=== PATIENT | female | born 1980 | race Two or more races ===

== ENCOUNTER 2023-08-10 09:49 | Outpatient (CLI) | payer BC, SELFPAY ==
--- OUTSIDE RECORDS SUMMARY | 2023-08-07 14:28 | XMS_ITS | Patient Health Record ---
Author Name Unknown Organization [facility] S Address [address] [id number] Care Team Providers Care Museum Exhibit Technician Name Role Phone Jarett IRWIN, Paulo Primary Care Provider [phone] REASON FOR REFERRAL No Information MEDICATIONS Medication SIG (Take, Route, Frequency, Duration) Notes Start Date End Date Status Cyclobenzaprine HCl 10 MG 1 tab(s) orall y at bedtime as needed for back pain/spasm 08/19/2010 Active Ibuprofen 800 MG 1 tab(s) orally 3 ti mes a day for two weeks, then three times a day as needed for pain 08/19/2010 Active IMMUNIZATIONS Vaccine Route Administration Date Status Comme nts Influenza 6 months and older Preservative Free IM Intramuscular 06/19/2020 Administered Influenza 6 months and older Preservative Free IM Intramuscular 07/01/2021 Administered SOCIAL HISTORY Sex Assigned At : Social History Observation Description Sex Assigned At Unknown PLAN OF TREATMENT No Information Insurance Providers Payer Name Payer Address Payer Phone Subscriber Number Group Number Insured Name Patient Relationship to Insured Coverage Start Date Coverage End Date [facility] [address] [address] [place] [address] [id number] Kirby Edwards Child - Insured has Financial Responsibility 7 MEDICAL (GENERAL) HISTORY Surgical History Surgery Date(Month/Year) thyroidglossal cyst remove 1984
--- OUTSIDE RECORDS SUMMARY | 2023-08-10 09:53 | XMS_ITS | Patient Health Record ---
Author Name Unknown Organization [facility] S Address [address] [id number] Care Team Providers Care Engine Room Helper Name Role Phone Jarett IRWIN, Paulo Primary Care Provider REASON FOR REFERRAL No Information MEDICATIONS Medication [...] Insured Coverage Start Date Coverage End Date [facility] [address] [address] [place] [address] [id number] Kirby Edwards Child - Insured has Financial Responsibility 7 MEDICAL (GENERAL) HISTORY Surgical History Surgery Date(Month/Year) thyroidglossal cyst remove 1984
== END 2023-08-10 09:50 | disposition home or self-care (01) ==
LOC: INJ CL 09:50
PROVIDERS: PCP Family Medicine; Visit Provider Family Medicine
DX: M51.36 Other intervertebral disc degeneration, lumbar region (principal); M54.16 Radiculopathy, lumbar region
CPT/HCPCS: 62323; J0702; Q9966

== ENCOUNTER 2023-10-06 20:50 | Emergency (ER) | payer OTHER, BC, SELFPAY ==
[2023-10-06 21:11] VITALS: BP 139/83; PULSE 73; RESP 16; TEMP 37.7; O2SAT 97; BMI 21.4
[2023-10-06 22:28] LABS: PCR FLU A Negative PCR FLU A (Negative); PCR FLU B Negative PCR FLU B (Negative); PCR RSV Negative PCR RSV (Negative); SARS PCR* Negative SARS-CoV-2 (Negative)
--- OUTSIDE RECORDS SUMMARY | 2023-10-06 23:04 | XMS_ITS | Clinical Summary ---
Author Name Unknown Organization [facility] Address [place], [place] [address] Care Team Providers Care Catalogue Clerk Name Role Phone Yu Ferguson JEFFREY Primary Care Provider [phone] Allergies No known active allergies Medications Medication Sig Dispensed Refills Start Date End Date Status vitamin-folic acid 1 mg ( VITAMIN) tablet/capsuleIndic ations:, unspecified gestational age Take 1 tablet by mouth once daily. 0 10/24/2015 Active medication order composerIndications :Lumbar radicular pain Tumeric 0 11/05/2017 Active glucosamine-chondro itin, 500-400 mg, (COSAMIN DS 500/400) 500-400 mg capIndications:Lumb ar radicular pain Take 2 capsules by mouth once daily. 60 capsule 11 12/20/2017 Active cyclobenzaprine (FLEXERIL) 10 mg tabletIndications:D DD (degenerative disc disease), lumbar Take 0.5-1 Tablets (5-10 mg) by mouth at bedtime if needed for Muscle Spasm. This may make you drowsy. 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 Jang. DDD (degenerative disc disease), lumbar at L5-S1 10/15/2017 Lumbar radicular pain 10/15/2017 10/25/2015 Overview: first EDC by first trimester US AMA: declines testing. Level US schedule with [facility] at 20 weeks Planning to transfer care third trimester to deliver with automated logistics specialist in [place]. Pelvic pain during 10/25/2015 Fibroid 05/09/2014 Overview: 04/2014: 5mm, submucosal Resolved Problems Problem Noted Date Diagnosed Date Resolved Date Heavy periods 04/20/2014 10/25/2015 BV (bacterial vaginosis) 04/20/2014 Encounters Date Type Department Care Team Description 08/10/2023 10:20 AM PROFESSOR IN FAMILY STUDIES Office Visit [facility] [address] [place] [address] Jonny Jang MD Procedure (L4-5 ILESI) 08/10/2023 Travel 07/27/2023 10:45 AM PROFESSOR IN FAMILY STUDIES Office Visit [facility] [address] [place] [address] Abdiel Washingotn MD Musculoskeletal Problem (Follow up DDD Lumbar Spine/Pain happened over time ) 07/27/2023 Travel from Last 3 Months Immunizations Name Administration Dates Next Due Tdap 04/19/2014 Family History Medical History Relation Name Comments Good Health Brother Diabetes Father Hypertension Father Cancer Maternal Grandfather d from [place] Diabetes Maternal Grandmother Cancer Mother non hodgkins Diabetes Paternal Grandfather Hypertension Paternal Grandfather Good Health Paternal Grandmother Good Health Sister Relation Name Status Comments Brother Father Maternal Grandfather Maternal Grandmother Mother Paternal Grandfather Paternal Grandmother Sister Social History Tobacco Use Types Packs/Day Years Used Date Smoking Tobacco: Never Smokeless Tobacco: Never Tobacco Cessation:Counseling Given: Yes Alcohol Use Standard Drinks/Week Comments Yes 0 (1 standard drink = 0.6 oz pur e alcohol) social Social Connections Answer Date Recorded Frequency of Communication with Friends and Fami ly Not on file 2021 Financial Resource Strain Answer Date R ecorded Difficulty of Paying Living Expenses Not on file 2021 Difficulty of Paying Living Expenses Not on file 2021 Sex and Gender Information Value Date Recorded Sex Assigned at Not on file Gender Identity Not on file Sexual Orientation Not on file Obstetrics History Para Term AB IAB SAB Ectopic Multiple Livin g Live Births 2 1 1 Date Outcome GA Total Labor Labor/2nd/3rd Weight Sex Delivery Anes PTL Cande A1 A5 Name Cl in IAB Last Filed Vital Signs Vital Sign Reading Time Taken Comments Blood Pressure 110/64 07/27/2023 10:54 AM PROFESSOR IN FAMILY STUDIES christi nuel Pulse 85 07/27/2023 10:54 AM PROFESSOR IN FAMILY STUDIES Temperature 36.9 ??C (98.4 ??F) 12/04/2020 1:06 PM CD T Respiratory Rate 16 03/03/2016 3:31 PM CDT Oxygen Saturation 99% 07/27/2023 10:54 AM PROFESSOR IN FAMILY STUDIES Inhaled Oxygen Concentration - - Weight 68.7 kg (151 lb 6.4 oz) 07/27/2023 10:54 AM PROFESSOR IN FAMILY STUDIES Height 171.8 cm (5' 7.64) 11/05/2017 10:[address] Body Mass Index 23.27 11/05/2017 10:21 AM PROFESSOR IN FAMILY STUDIES Plan of Treatment Health Maintenance Due Date Last Done Comments Depression screening for age 12+ 11/25/2016 11/26/2015 BMI (ht and wt on same day) for age 18+ 11/05/2018 11/05/2017, 10/15/2017, 11/26/2015, Additional history exists Pap test for age 21-65 08/05/2019 6, 08/05/2016, 04/19/2014 COVID-19 vaccine series (2022- season) 2023 07/16/2022, 07/30/2021, 01/04/2021, Additional history exists Influenza for age 9-49 04/30/2023 Colonoscopy through age 75 2023 Lipids for age 45-75 2023 04/19/2014 Mammogram for age 45-75 2023 Tetanus booster 04/19/2024 04/19/2014 Tdap Completed 04/19/2014 HIV for age 15-65 Completed 11/26/2015 Hepatitis C screening for age 18-79 Completed 03/24/2016 Pneumococcal series for age 6-64 Aged Out No longer eligible based on patient's age to complete this topic Procedures Procedure Name Priority Date/Time Associated Diagnosis Comments RI NJX DX/THER SBST INTRLMNR LMBR/SAC W/IMG GDN Routine 08/10/2023 12:00 AM PROFESSOR IN FAMILY STUDIES DDD (degenerative disc disease), lumbar Lumbar radiculopathy AMB EPIDURAL STEROID INJECTION Routine 08/10/2023 12:00 AM PROFESSOR IN FAMILY STUDIES DDD (degenerative disc disease), lumbar from Last 3 Months Results * RI NJX DX/THER SBST INTRLMNR LMBR/SAC W/IMG GDN (08/10/2023 12:00 AM PROFESSOR IN FAMILY STUDIES) Jonny Jang MD PB - NERVOUS SYSTE M SERVICES * AMB EPIDURAL STEROID INJECTION (08/10/2023 12:00 AM PROFESSOR IN FAMILY STUDIES) Abdiel Washington MD NEUROLOGY ORD from Last 3 Months Care Teams Catalogue Clerk Relationship Specialty Start Date End Date Yu Ferguson CNM [address] [place] [address] PCP - General 03/24/16"
--- OUTSIDE RECORDS SUMMARY | 2023-10-06 23:05 | XMS_ITS | Patient Health Record ---
Author Name Unknown Organization [facility] S Address [address] [id number] Care Team Providers Care Prevocational/Rehabilitation Counselor Name Role Phone Jarett IRWIN, Paulo Primary Care Provider [phone] REASON FOR REFERRAL No Information MEDICATIONS Medication [...] Insured Coverage Start Date Coverage End Date [facility] [address] [address] [place] [address] [id number] Kirby Edwards Child - Insured has Financial Responsibility 7 MEDICAL (GENERAL) HISTORY Surgical History Surgery Date(Month/Year) thyroidglossal cyst remove 1984
--- OUTSIDE RECORDS SUMMARY | 2023-10-06 23:05 | XMS_ITS | Data Portability ---
Author Name Unknown Address [address] [place] [address] Phone [phone] Organization [facility], [facility] Address [address] [place] [address] Assessment Encounter Date Assessment Date Assessment LastModified by Organization Details LastModified Time 10/03/2019 10/03/2019 risk assessment is: normal and low-risk Not available 10/03/2019 15:31:41 Plan of Treatment Reminders Order Date Submit Date Provider Last Modified By Organization Details Last Modified Time Details Appointments None record ed. Lab None record ed. Referral None record ed. Procedures None record ed. Surgeries None record ed. Imaging None record ed. Medication Orders None record ed. Patient TargetsNo targets recorded. Patient Instructions Encounter Date Encounter Id Patient Instructions Last Modified By Organization Details Last Modified Time 10/03/2019 [id number] We discussed t and supplements and modifiable risk factors. {{Kanchan# name}} advised to continue moderate physical activity. She will report unusual headaches, visual disturbances, pelvic pain or cramping, vaginal bleeding, rupture of membranes, extreme swelling in hands or face, diminished urine volume, any prolonged illness or infection, or persistent symptoms of labor. She has been provided with a handout explaining the different ways to contact a provider including the office number, the portal address for messages, and the on-call number. A tour and orientation session was attended {{for this with previous *}}. We collected an informed consent agreement and provided the web address and password for our client information that includes a client handbook with informational documents we use for our informed consent process. [facility] schedule for routine care discussed. Our routine visits occur 1x in the first trimester, 20 weeks, 26 weeks, 30 weeks, 34 weeks, 36 weeks for a long appointment, 38 weeks, and 40 weeks. More visits can be scheduled as needed through the portal or by calling. Labs/ultrasounds have been {{ordered request ed from previous provider*}}. Genetic testing was discussed and additional information is available in the client handbook. Her plan is to {{screen not screen undecided on screening*}}. At this time, she meets the risk criteria for care at [facility] and is anticipated to have a low-risk //p ostpartum time. Not available 10/03/2019 16:03:04 Reason for Referral None Reported. Results Created Date Observation Date Name Description Value Unit Range Abnormal Flag LastModifiedBy Organization Detail LastModifiedTime 10/13/19 20 10/12/2019 US, obste tric, 1st trime ster No observ ation record ed. [facility] [address] [place], [address], 12/19/2019 20:43:31 Result Notes None recorded. Problems Name Status Onset Date Resolution Date Notes Provider Name and Address Organization Details Recorded Time Completed 0 12/19/2019 Yu Ferguson, CPM, LM [address] [place], [address], [place] - [facility] 12/19/2019 20:45:10 Problem Notes None recorded. Procedures Surgical History None recorded. Imaging Results Imaging Date Name Status LastModified by Organiz ation Details LastModified Time 10/12/2019 US, obstetric, 1st trimester completed [facility] [address] [place], [address], 12/19/2019 20:43:31 Procedure Notes None recorded. Medical Equipment None Reported. Allergies No known drug allergies Medications Name Sig Start Date Stop Date Status Note LastModified by Organization Details LastModified Time hydroxyzine pamoate 25 mg capsule active Not Available Not Available Not Available Vitals Date Recorded Body height Body mass index (BMI) Body weight Respiratory rate Heart rate Systolic blood pressure Diastolic blood pressure Provider Name and Address Organization Details Last Updated DateTime 0 172.72 cm 9.1 kg/m2 15394.5 422 g 12 /min 80 /min 101 mm[Hg] 60 mm[Hg] ERASTO SCHRADER CPM, LM [address] [place], [address], [facility] 0 14:38:42 Social History Question Answer Notes LastModified by Organizat ion Details LastModified Time Tobacco Smoking Status Never Smoker ERASTO SCHRADER, CHRISTIAN, LM [address] [place], [address], [facility] 10/03/2019 14:55:04 What Is Your Level Of Alcohol Consumption? None Information not available 10/03/2019 If You Are , What Was Your Level Of Alcohol Consumption Prior To ? None Information not available 10/03/2019 What Is Your Level Of Caffeine Consumption? None Information not available 10/03/2019 Live With Cats/exposure To Cat Litter Yes Information not available 10/03/2019 Are You Currently Employed? Yes Information not available 10/03/2019 What Type Of Diet Are You Following? 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 1 Information not available 10/03/2019 Do You Or Have You Ever Used Smokeless Tobacco? [id number] Information not available 10/03/2019 How Much Tobacco Do You Smoke? No Information not available 10/03/2019 Smoking Pre- No Information not available 10/03/2019 Sex: Female Functional Status Question Answer Note LastModified by Organization D etails LastModified Time What is your exercise level? Moderate Information not available 10/03/2019 Mental Status None recorded. Family History Relationship Description Onset Age of this Age Resolved Age Notes Father No current problems or disability Mother No current problems or disability Medical History Condition Response Other N Blood Transfusion N Dermatologic Disorders N Gestational Diabetes N Anxiety Disorder N Autoimmune disease N Arthritis N Infertility N Polyps N Acid Reflux (GERD) N Cancer N Varicosities N Stroke N Neurologic/Epilepsy N Headaches N Fibromyalgia N Kidney Disease N Heart Problems N Kidney or Bladder Problems N Acne N Eating Disorder N Art (IVF or FET) N Hepatitis/Liver Disease N Trauma/Violence N Thrombophilias N Allergies (Food, seasonal, environmental ) N Drug/Latex Allergies/Reactions N Breast Cancer N Lung Disease N Defects or Inherited Disease N Breast Problem N Hematologic disorders N Anesthesia Complications N History of STI N Deep Vein Thrombosis N Polycystic ovary syndrome N History of abnormal pap N Endometriosis N High Cholesterol N Thyroid Problems N GI Problems N Anemia N Psychiatric Illness N Diabetes N Ovarian Cancer N Pulmonary (TB, Asthma) N Eczema N Abuse/Domestic Violence N Depression/ depression N Heart Disease N Pre-Eclampsia N Hypertension N Osteoporosis N Gynecological History Statement/Question Response Date of LMP 08/05/2019 Y On BCP's at Conception? N STIs/STDs N Duration of Flow (days) 30 N Age at Menarche 10 LMP Definite Obstetrics History GPAL:G 5 P 1 0 2 1 Type Value Multiple Births 0 Full Term 1 Induced 1 Spontaneous 1 Premature 0 Living 1 Ectopics 0 Total 5 Past Encounters Encounter ID Performer Location Encounter Start Date Encounter Closed Date Diagnosis/Indication [id number] ERASTO SCHRADER CPM, LM Main Office [address] [place] [address] 10/03/2019 14:30:52 10/03/2019 16:05:29 Health Concerns Section Related Observation LastModified by Organization Detai ls LastModified Time None Recorded Concern Status LastModified by Organization Details LastModified Time None Recorded Advance Directives Directive None Recorded Payers None recorded. Notes Date Note Type Note Provider Name and Address Organization Details Recorded Time 10/03/2019 text/html HPI Notes: Viviana griffith presents for initial OB visit and confirmation visit. Last menstrual period was 08/05/2019. Home test was positive. She is a G 4 P 1 Patient is transferring into our care for this from another provider. Her AMARILYS is 05/11/2020 based on LMP ERASTO SCHRADER CPM, LM [address] [place], [address], [facility] 10/03/2019 16:05:19 OBGyn Episode Ob Episode Information Episode Created Date Number of Fetuses Patient Bloodtype Patient rh Status Prepregnancy Weight lbs Domestic Partner Domestic Partner Phone Father Name Separator Inserter Status 10/03/19 20 1 163 Kirby CLOSED Fetus Data First Name Last Name Admitted to NICU Weight (g) Sex Living Outcome Pediatric Complications Fetus ID Race Codes Race Delivery Type [id number] Amarilys Calculation Initial Amarilys Date Initial Exam Date Initial Exam Provider Initial Ultrasound Date Last Menstrual Period Date Ultra Sound Weeks Gestation 05/11/2020 10/03/2019 10/12/2019 08/05/2019 9 Eighteen To Twenty Week Amarilys Update Ultra Sound Date Fundal Height At Umbil Quickening Date Ultra Sound Latest Weeks Gestation Final Amarilys Confirmed By Final Amarilys Confirmed Date Final Amarilys Date Ultra Sound Latest Days Gestation 0 05/11/20 20 0 Pre-lina Flowsheet Flowsheet Date 10/03/2019 Lim Score Blood Edema Fundus Height Fundus Units Glucose Ketones Leukocytes Nitrite Labor Signs Protein Cervic Dilation Cervic Effacement Cervic Station none 8 wks none Type Weight in lbs BP Diastolic BP Location Tested BP Systolic BP Type 60 101 Fetus Heart Rate Present Fetus Movement Comments Menstrual History Last Menstrual Date Menses Monthly On Bcp Conception Prior Menses Frequency Hcg Plus Date Menarche Onset Age 1208/05/2019 true false 30 12 Genetic Screening And Infection History Question Response Note Patient's Age Will Be 35 Years Or Older At Estim ated Date of Delivery true Thalassemia (Korean, Albanian, Mediterranean, Or Background): MCV < 80 false Neural Tube Defect (Meningomyelocele, Spina Bifi da, Or Anencephaly) false Congenital Heart Defect false Down Syndrome false Evan-Sachs (eg, Restoration, Cajun, Tunisian-Vermilion) f alse Rosa Disease false Sickle Cell Disease Or Trait () false Hemophilia Or Other Blood Disorders false Muscular Dystrophy false Cystic Fibrosis false Gila's Chorea false Intellectual Disability/Autism false If Yes, Was Person Tested For Fragile X? false Other Inherited Genetic Or Chromosomal Disorder false Maternal Metabolic Disorder (eg, Type 1 Diabetes , PKU) false Patient Or Baby's Father Had A Child With Defects Not Listed Above false Recurrent Loss, Or A Stillbirth false Medications (including Suppl ements, Vitamins, Herbs, OTC Drugs), Illicit/Recreational Drugs, Alcohol false If Yes, Agent(s) And Strength/Dosage false Any Other Genetic History false Live With Someone With TB Or Exposed To TB false Patient Or Partner Has History Of Genital Herpes false Rash Or Viral Illness Since Last Menstrual Perio d false History Of STD, Gonorrhea, Chlamydia, HPV, Syphi lis false Other Infection History false Prior GBS-infected child false History of HIV false History of Hepatitis false Hemoglobinopathy Or Carrier false Other Structural Defect false Recent Travel History Outside of Country false Mental Retardation/Autism false Delivery Information Delivery Date Delivery Type Labor Anesthesia Weeks Gestation Incision Type Labor Labor Length Hrs Delivered By Post Complications Tubal Sterilization Discharge Date Comments Discharge Information Feeding Method Contraceptive Method Maternal HG B and HCT Levels
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
== END 2023-10-06 23:06 | disposition home or self-care (01) ==
PROVIDERS: Emergency Provider Emergency Medicine; PCP Family Medicine
DX: M54.50 Low back pain, unspecified (principal); V43.52XA Car driver injured in collision with other type car in traffic accident, initial encounter
CPT/HCPCS: 87631; 99282; 99283

== ENCOUNTER 2023-10-27 12:21 | Outpatient (CLI) | payer OTHER, BC, SELFPAY | END 2023-10-27 12:22 | disposition home or self-care (01) | LOC: AMB 10-28 00:30 | PROVIDERS: PCP Family Medicine; Visit Provider Family Medicine | DX: S29.9XXA Unspecified injury of thorax, initial encounter (principal); V44.5XXA Car driver injured in collision with heavy transport vehicle or bus in traffic accident, initial encounter; Y92.410 Unspecified street and highway as the place of occurrence of the external cause | CPT/HCPCS: A0998 ==

== ENCOUNTER 2024-05-24 15:02 | Outpatient (CLI) | payer OTHER, SELFPAY ==
--- OUTSIDE RECORDS SUMMARY | 2024-05-24 15:07 | XMS_ITS | Clinical Summary ---
Author Organization [facility] Address [place], [place] [address] Care Team Providers Care Senior Report Developer Name Role Phone Yu Ferguson JEFFREY Primary Care Provider [phone] Allergies No known active allergies Medications Medication [...] Date Lumbar disc herniation at L4-5 10/15/2017 Overview (08/12/2023): ~ July 2023: L4-5 [place] epidural steroid injection by Dr. Jang. DDD (degenerative disc disease), lumbar at L5-S1 10/15/2017 Lumbar radicular pain 10/15/2017 10/25/2015 Overview (01/22/2016): first EDC by first trimester US AMA: declines testing. Level US schedule with MFM at 20 weeks Planning to transfer care third trimester to deliver with nuclear physician in [place]. Pelvic pain during 10/25/2015 Fibroid 05/09/2014 Overview (05/09/2014): 04/2014: 5mm, submucosal Resolved Problems Problem Noted Date Diagnosed Date Resolved Date Heavy periods 04/20/2014 10/25/2015 BV (bacterial vaginosis) 04/20/2014 Immunizations Name Administration Dates Next Due Tdap [...] Outcome GA Total Labor Labor/2nd/3rd Weight Sex Type Anes PTL Cande A1 A5 Name Clin IAB Last Filed Vital Signs Vital Sign Reading Time Taken Comments Blood Pressure 110/64 07/27/2023 10:54 AM SUPPLY CHAIN TECHNICIAN ma nuel Pulse 85 07/27/2023 10:54 AM SUPPLY CHAIN TECHNICIAN Temperature 36.9 ??C (98.4 ??F) 12/04/2020 1:06 PM CD T Respiratory Rate 16 03/03/2016 3:31 PM CDT Oxygen Saturation 99% 07/27/2023 10:54 AM SUPPLY CHAIN TECHNICIAN Inhaled Oxygen Concentration - - Weight 68.7 kg (151 lb 6.4 oz) 07/27/2023 10:54 AM SUPPLY CHAIN TECHNICIAN Height 171.8 cm (5' 7.64) 11/05/2017 10:[address] Body Mass Index 23.27 11/05/2017 10:21 AM SUPPLY CHAIN TECHNICIAN Plan of Treatment Health Maintenance Due Date Last Done Comments Depression screening for age 12+ 11/25/2016 11/26/2015 BMI (ht and wt on same day) for age 18+ 11/05/2018 11/05/2017, 10/15/2017, 11/26/2015, Additional history exists Pap test for age 21-65 08/05/2019 6, 08/05/2016, 04/19/2014 Colonoscopy through age 75 2023 Lipids for age 45-75 2023 04/19/2014 Mammogram for age 45-75 2023 Tetanus booster 04/19/2024 04/19/2014 COVID-19 vaccine series (2022-24 season) 2024 07/16/2022, 07/30/2021, 01/04/2021, Additional history exists Influenza for age 9-49 04/30/2024 Tdap Completed 04/19/2014 HIV for age 15-65 Completed 11/26/2015 Hepatitis C screening for age 18-79 Completed 03/24/2016 Pneumococcal series for age 6-64 Aged Out No longer eligible based on patient's age to complete this topic Procedures Procedure Name Priority Date/Time Associated Diagnosis Comments SPAR MACHINE OPERATOR THIN PREP PAP DIAGNOSTIC IMAGED Routine 08/05/2016 3:00 PM SUPPLY CHAIN TECHNICIAN Encounter for routine follow-up ANTI HCV Today 03/24/2016 3:58 PM CDT Normal , second trimester ANTI HIV 1/2 Routine 11/26/2015 2:59 PM CDT Encounter for supervision of other normal LIPID PANEL W REFLEX MEASURED LDL Routine 04/19/2014 1:06 PM CDT Lipid screening from Last 3 Months or Most Recently Relevant to Health Maintenance Results * SPAR MACHINE OPERATOR THIN PREP PAP DIAGNOSTIC IMAGED (08/05/2016 3:00 PM SUPPLY CHAIN TECHNICIAN) Case Report Gynecologic Cytology Report ? Case: [id number] ? Authorizing Provider: ??Yu Ferguson, JEFFREY ?Collected: ? 08/05/2016 1500 ? First Screen: ?Liliana Romero ?Received: ?08/07/2016 1248 ? Rescreen: ?Justen Contreras ? Specimen: ?SPAR MACHINE OPERATOR ThinPrep Vial Diagnostic, Cervical/Vaginal ? 08/14/2016 12:08 PM [facility]- ENTRAL LABORATORY INTERPRETATION/ RESULT NEGATIVE FOR INTRAEPITHELIAL LESION OR MALIGNANCY (NIL) (none) 08/14/2016 12:08 PM [facility] IMEN ADEQUACY Satisfactory for evaluation Endocervical component present 08/14/2016 12:08 PM [facility] Rewarding Return [facility] ENTRAL LABORATORY HPV REQUEST HPV and PAP 08/14/2016 12:08 PM SUPPLY CHAIN TECHNICIAN [facility]-C ENTRAL LABORATORY Date of LMP 09/09/2015 08/14/2016 12:08 PM [facility] Last Pap Date 01/29/2014 08/14/2016 12:08 PM [facility] ENTRAL LABORATORY Last Pap Result NIL 6 12:08 PM [facility] ENTRAL LABORATORY Menstrual Status 08/14/2016 12:08 PM [facility] ENTRLA LABORATORY Automated Review Successful 08/14/2016 12:08 PM [facility] EN[facility]LA LABORATORY Comment:Specimen processed s uccessfully by automated policy and planning manager device, Cloud TheoryPrep Imaging System, [employer] ANCILLARY TESTING SPAR MACHINE OPERATOR HPV Ordered, Please see separate report 08/14/2016 12:08 PM [facility] ENTRLA LABORATORY Note The pap test is a screening technique, not a diagnostic procedure. It is used primarily to screen for squamous cancers and precursor lesions. Published studies have shown that it is subject to both false negative and false positive results. The pap test should not be used as the sole means to diagnose or exclude pre-malignant and malignant lesions. 08/14/2016 12:08 PM [facility] Other (Cervical/Vagina l) 08/05/2016 3:00 PM SUPPLY CHAIN TECHNICIAN 08/07/2016 12:48 PM SUPPLY CHAIN TECHNICIAN [facility] PATHOLOGY/CYTOLOGY [facility]-CENTRAL LABORATORY [address] [place] [address], [place] * ANTI HCV (03/24/2016 3:58 PM CDT) HEPATITIS C ANTIBODY Non-Reacti ve Non-Reacti ve 03/24/2016 5:39 PM CDT [facility] Blood BLOOD SPECIMEN / Unknown Venipuncture / Unknown 03/24/2016 3:58 PM CDT 03/24/2016 4:00 PM CDT [facility] - 03/24/2016 5:39 PM CDT Antibodies to HCV not detected; does not exclude the possibility of exposure to HCV. [facility] SEND OUTS [facility] [place] [address], * ANTI HIV 1/2 (11/26/2015 2:59 PM CDT) HIV-1/HIV-2 ANTIBODY Non-Reacti ve Non-Reacti ve 11/26/2015 7:41 PM CDT [facility] LABORATORY-[facility] TRAL LABORATORY Blood specimen (specimen) BLOOD SPECIMEN / Unknown Venipuncture / Unknown 11/26/2015 2:59 PM CDT 11/26/2015 2:59 PM CDT Narrative [facility] LABORATORY - 11/26/2015 7:41 PM CDT HIV-1 p24 and HIV-1/HIV-2 Ab not detected Alba Castellanos MD [facility] [address] [place] [address], * LIPID PANEL W REFLEX MEASURED LDL (04/19/2014 1:06 PM CDT) CHOLESTEROL,TOTAL 184 100 - 199 mg/dL 04/19/2014 1:32 PM CDT [facility] TRIGLYCERIDES 89 <150 mg/dL 04/19/2014 1:32 PM CDT [facility] HDL CHOLESTEROL 75 >40 mg/dL 4 1:32 PM CDT [facility] NON-HDL CHOLESTEROL 109 <145 mg/dl 04/19/2014 1:32 PM CDT [facility] CHOL/HDL RATIO 2.45 <4.50 04/19/2014 1:32 PM CDT [facility] LDL CHOLESTEROL 91 <=130 mg/dL 04/19/2014 1:32 PM CDT [facility] PATIENT STATUS FASTING 04/19/2014 1:32 PM CDT [facility] Blood specimen (specimen) BLOOD SPECIMEN / Unknown Venipuncture / Unknown 04/19/2014 1:06 PM CDT 04/19/2014 1:07 PM CDT Ashley Ro MD CHEMISTRY [facility] from Last 3 Months or Most Recently Relevant to Health Maintenance Care Teams Senior Report Developer Relationship Specialty Start Date End Date Yu Ferguson CNM [address] [place] [id number] PCP - General 03/24/16
== END 2024-05-24 15:03 | disposition home or self-care (01) ==
PROVIDERS: PCP Family Medicine; Visit Provider Family Medicine
DX: N92.0 Excessive and frequent menstruation with regular cycle (principal); M25.50 Pain in unspecified joint; R53.83 Other fatigue; Z13.6 Encounter for screening for cardiovascular disorders
CPT/HCPCS: 80053; 80061; 82306; 82607; 82728; 84443

== ENCOUNTER 2024-07-13 10:44 | Outpatient (CLI) | payer OTHER, SELFPAY ==
--- OUTSIDE RECORDS SUMMARY | 2024-07-13 10:46 | XMS_ITS | Clinical Summary ---
Author Organization [facility] [facility] Address [place], [place] [address] Care Team Providers Care Leases And Land Supervisor Name Role Phone Yu Ferguson JEFFREY Primary Care Provider [phone] Allergies No known active allergies Medications Medication [...] transfer care third trimester to deliver with pipe fitter welding in [place]. Pelvic pain during 10/25/2015 Fibroid 05/09/2014 Overview [...] Comments Blood Pressure 110/64 07/27/2023 10:54 AM TAIL RIPPER ma nuel Pulse 85 07/27/2023 10:54 AM TAIL RIPPER Temperature 36.9 ??C (98.4 ??F) 12/04/2020 1:06 PM CD T Respiratory Rate 16 03/03/2016 3:31 PM CDT Oxygen Saturation 99% 07/27/2023 10:54 AM TAIL RIPPER Inhaled Oxygen Concentration - - Weight 68.7 kg (151 lb 6.4 oz) 07/27/2023 10:54 AM TAIL RIPPER Height 171.8 cm (5' 7.64) 11/05/2017 10:[address] Body Mass Index 23.27 11/05/2017 10:21 AM TAIL RIPPER Plan of Treatment Health Maintenance Due Date [...] Tetanus booster 04/19/2024 04/19/2014 COVID-19 vaccine series ( season) 2024 07/16/2022, 07/30/2021, 01/04/2021, Additional history exists Influenza for age 9-49 04/30/2024 Tdap Completed 04/19/2014 HIV for age 15-65 Completed 11/26/2015 Hepatitis C screening for age 18-79 Completed 03/24/2016 Pneumococcal series for age 6-64 Aged Out No longer eligible based on patient's age to complete this topic Procedures Procedure Name Priority Date/Time Associated Diagnosis Comments CUBE CUTTER THIN PREP PAP DIAGNOSTIC IMAGED Routine 08/05/2016 3:00 PM TAIL RIPPER Encounter for routine follow-up ANTI HCV Today 03/24/2016 3:58 PM CDT Normal , second trimester ANTI HIV 1/2 Routine 11/26/2015 2:59 PM CDT Encounter for supervision of other normal LIPID PANEL W REFLEX MEASURED LDL Routine 04/19/2014 1:06 PM CDT Lipid screening from Last 3 Months or Most Recently Relevant to Health Maintenance Results * CUBE CUTTER THIN PREP PAP DIAGNOSTIC IMAGED (08/05/2016 3:00 PM TAIL RIPPER) Case Report Gynecologic Cytology Report ? Case: [id number] ? Authorizing Provider: ??Yu Ferguson, JEFFREY ?Collected: ? 08/05/2016 1500 ? First Screen: ?Liliana Romero ?Received: ?08/07/2016 1248 ? Rescreen: ?Justen Contreras ? Specimen: ?CUBE CUTTER ThinPrep Vial Diagnostic, Cervical/Vaginal ? 08/14/2016 12:08 PM [facility]- ENTRAL LABORATORY INTERPRETATION/ RESULT NEGATIVE FOR INTRAEPITHELIAL LESION OR MALIGNANCY (NIL) (none) 08/14/2016 12:08 PM [facility] IMEN ADEQUACY Satisfactory for evaluation Endocervical component present 08/14/2016 12:08 PM [facility] [employer] [facility] ENTRAL LABORATORY HPV REQUEST HPV and PAP 08/14/2016 12:08 PM TAIL RIPPER [facility] ENTRAL LABORATORY Date of LMP 09/09/2015 08/14/2016 12:08 PM [facility] Last Pap Date 01/29/2014 08/14/2016 12:08 PM [facility] ENTRAL LABORATORY Last Pap Result NIL 6 12:08 PM [facility] ENTRAL LABORATORY Menstrual Status 08/14/2016 12:08 PM [facility] ENTRIL LABORATORY Automated Review Successful 08/14/2016 12:08 PM [facility] ENTRIL LABORATORY Comment:Specimen processed s uccessfully by automated mender knit goods device, IV DiagnosticsPrep Imaging System, [employer] ANCILLARY TESTING CUBE CUTTER HPV Ordered, Please see separate report 08/14/2016 12:08 PM [facility] ENTRIL LABORATORY Note The pap test is a screening technique, not a diagnostic procedure. It is used primarily to screen for squamous cancers and precursor lesions. Published studies have shown that it is subject to both false negative and false positive results. The pap test should not be used as the sole means to diagnose or exclude pre-malignant and malignant lesions. 08/14/2016 12:08 PM [facility] LABORAT[facility] Other (Cervical/Vagina l) 08/05/2016 3:00 PM TAIL RIPPER 08/07/2016 12:48 PM TAIL RIPPER [facility] PATHOLOGY/CYTOLOGY [facility]-CENTRAL LABORATORY [address] [place] [address], [place] * ANTI HCV (03/24/2016 3:58 PM CDT) HEPATITIS C ANTIBODY Non-Reacti ve Non-Reacti ve 03/24/2016 5:39 PM CDT [facility] Blood BLOOD SPECIMEN / Unknown Venipuncture / Unknown 03/24/2016 3:58 PM CDT 03/24/2016 4:00 PM CDT [facility] - 03/24/2016 5:39 PM CDT Antibodies to HCV not detected; does not exclude the possibility of exposure to HCV. [facility] SEND OUTS [facility] [place] [address], * ANTI HIV 1/2 (11/26/2015 2:59 PM CDT) HIV-1/HIV-2 ANTIBODY Non-Reacti ve Non-Reacti ve 11/26/2015 7:41 PM CDT [facility] LABORAT[facility] TRAL LABORATORY Blood specimen (specimen) BLOOD SPECIMEN / Unknown Venipuncture / Unknown 11/26/2015 2:59 PM CDT 11/26/2015 2:59 PM CDT Narrative [facility] LAB[facility] - 11/26/2015 7:41 PM CDT HIV-1 p24 and HIV-1/HIV-2 Ab not detected Alba Castellanos MD [facility] [address] [place] [address], * LIPID PANEL W REFLEX MEASURED LDL (04/19/2014 1:06 PM CDT) CHOLESTEROL,TOTAL 184 100 - 199 mg/dL 04/19/2014 1:32 PM CDT [facility] TRIGLYCERIDES 89 <150 mg/dL 04/19/2014 1:32 PM CDT [facility] HDL CHOLESTEROL 75 >40 mg/dL 4 1:32 PM CDT [facility] NON-HDL CHOLESTEROL 109 <145 mg/dl 04/19/2014 1:32 PM CDT [facility] CHOL/HDL RATIO 2.45 <4.50 04/19/2014 1:32 PM CDT [facility] LDL CHOLESTEROL 91 <=130 mg/dL 04/19/2014 1:32 PM CDT [facility] PATIENT STATUS FASTING 04/19/2014 1:32 PM CDT [facility] Blood specimen (specimen) BLOOD SPECIMEN / Unknown Venipuncture / Unknown 04/19/2014 1:06 PM CDT 04/19/2014 1:07 PM CDT Ashley Ro MD CHEMISTRY [facility] from Last 3 Months or Most Recently Relevant to Health Maintenance Care Teams Leases And Land Supervisor Relationship Specialty Start Date End Date Yu Ferguson CNM [address] [place] [address] PCP - General 03/24/16
[2024-07-15 07:38] LABS: HPV Source Cervix; HPV, High Risk by TMA Not Detected
== END 2024-07-13 10:45 | disposition home or self-care (01) ==
PROVIDERS: PCP Family Medicine; Visit Provider Family Medicine
DX: Z01.419 Encounter for gynecological examination (general) (routine) without abnormal findings (principal); E55.9 Vitamin D deficiency, unspecified; R79.89 Other specified abnormal findings of blood chemistry; M81.0 Age-related osteoporosis without current pathological fracture; Z13.820 Encounter for screening for osteoporosis; Z13.21 Encounter for screening for nutritional disorder; Z12.4 Encounter for screening for malignant neoplasm of cervix
CPT/HCPCS: 87624; 87625; 88141; 88142

== ENCOUNTER 2024-07-31 12:09 | Outpatient (CLI) | payer OTHER, SELFPAY ==
--- OUTSIDE RECORDS SUMMARY | 2024-07-31 12:12 | XMS_ITS | Clinical Summary ---
Author Organization [employer] [facility] Address [place], [place] [address] Care Team Providers Care Medical Biller Coder Name Role Phone Yu Ferguson JEFFREY Primary Care Provider [phone] Allergies No known active allergies Medications Medication [...] transfer care third trimester to deliver with wringer machine operator in [place]. Pelvic pain during 10/25/2015 Fibroid 05/09/2014 Overview [...] Comments Blood Pressure 110/64 07/27/2023 10:54 AM KNOT TYING OPERATOR ma nuel Pulse 85 07/27/2023 10:54 AM KNOT TYING OPERATOR Temperature 36.9 C (98.4 F) 12/04/2020 1:06 PM CDT Respiratory Rate 16 03/03/2016 3:31 PM CDT Oxygen Saturation 99% 07/27/2023 10:54 AM KNOT TYING OPERATOR Inhaled Oxygen Concentration - - Weight 68.7 kg (151 lb 6.4 oz) 07/27/2023 10:54 AM KNOT TYING OPERATOR Height 171.8 cm (5' 7.64) 11/05/2017 10:[address] Body Mass Index 23.27 11/05/2017 10:21 AM KNOT TYING OPERATOR Plan of Treatment Health Maintenance Due Date [...] Procedure Name Priority Date/Time Associated Diagnosis Comments CHEMICAL RECLAMATION EQUIPMENT OPERATOR THIN PREP PAP DIAGNOSTIC IMAGED Routine 08/05/2016 3:00 PM KNOT TYING OPERATOR Encounter for routine follow-up ANTI HCV Today 03/24/2016 3:58 PM CDT Normal , second trimester ANTI HIV 1/2 Routine 11/26/2015 2:59 PM CDT Encounter for supervision of other normal LIPID PANEL W REFLEX MEASURED LDL Routine 04/19/2014 1:06 PM CDT Lipid screening from Last 3 Months or Most Recently Relevant to Health Maintenance Results * CHEMICAL RECLAMATION EQUIPMENT OPERATOR THIN PREP PAP DIAGNOSTIC IMAGED (08/05/2016 3:00 PM KNOT TYING OPERATOR) Case Report Gynecologic Cytology Report Case: [id number] Authorizing Provider: Yu Ferguson CNM Collected: 08/05/2016 1500 First Screen: Liliana Romero Received: 08/07/2016 1248 Rescreen: Justen Contreras Specimen: CHEMICAL RECLAMATION EQUIPMENT OPERATOR ThinPrep Vial Diagnostic, Cervical/Vaginal 08/14/2016 12:08 PM KNOT TYING OPERATOR [employer] LABORATORY-C ENTRAL LABORATORY INTERPRETATION/ RESULT NEGATIVE FOR INTRAEPITHELIAL LESION OR MALIGNANCY (NIL) (none) 08/14/2016 12:08 PM KNOT TYING OPERATOR [employer] ENTRAL LABORAT[facility] IMEN ADEQUACY Satisfactory for evaluation Endocervical component present 08/14/2016 12:08 PM KNOT TYING OPERATOR [employer] ENTRAL LAB[facility] HPV REQUEST HPV and PAP 08/14/2016 12:08 PM KNOT TYING OPERATOR [employer] ENTRAL LABORAT[facility] Date of LMP 09/09/2015 08/14/2016 12:08 PM KNOT TYING OPERATOR [employer] [facility]ORY[facility] ENTRAL LABORATORY Last Pap Date 01/29/2014 08/14/2016 12:08 PM KNOT TYING OPERATOR [facility] Last Pap Result NIL 6 12:08 PM KNOT TYING OPERATOR [employer] LABORATORY-C ENTRAL LABORATORY Menstrual Status 08/14/2016 12:08 PM KNOT TYING OPERATOR [employer] ENTRAL LABORATORY Automated Review Successful 08/14/2016 12:08 PM KNOT TYING OPERATOR [facility] [employer] [facility] ENTRAL LABORATORY Comment:Specimen processed s uccessfully by automated potato chip cooker machine device, ThinPrep Imaging System, [employer] ANCILLARY TESTING CHEMICAL RECLAMATION EQUIPMENT OPERATOR HPV Ordered, Please see separate report 08/14/2016 12:08 PM [facility] [employer] ENTRAL LABORATORY Note The pap test is a screening technique, not a diagnostic procedure. It is used primarily to screen for squamous cancers and precursor lesions. Published studies have shown that it is subject to both false negative and false positive results. The pap test should not be used as the sole means to diagnose or exclude pre-malignant and malignant lesions. 08/14/2016 12:08 PM [facility] [employer] ENTRAL LABORATORY Other (Cervical/Vagina l) 08/05/2016 3:00 PM KNOT TYING OPERATOR 08/07/2016 12:48 PM KNOT TYING OPERATOR Yu Ferguson [facility] PATHOLOGY[facility] [address] [place] [address], [place] * ANTI HCV (03/24/2016 3:58 PM CDT) HEPATITIS C ANTIBODY Non-Reacti ve Non-Reacti ve 03/24/2016 5:[address] [facility] Blood BLOOD SPECIMEN / Unknown Venipuncture / Unknown 03/24/2016 3:58 PM CDT 03/24/2016 4:00 PM CD[address] [facility] - 03/24/2016 5:39 PM CDT Antibodies to HCV not detected; does not exclude the possibility of exposure to HCV. Yu Reyes [facility] SEND OUTS Performing Organization Address City/[facility]/ZIP Co de Phone Number [facility] [place] [address], * ANTI HIV 1/2 (11/26/2015 2:59 PM CDT) HIV-1/HIV-2 ANTIBODY Non-Reacti ve Non-Reacti ve 11/26/2015 7:41 PM CDT [facility] TRAL LABORATORY Blood specimen (specimen) BLOOD SPECIMEN / Unknown Venipuncture / Unknown 11/26/2015 2:59 PM CDT 11/26/2015 2:59 PM CDT [facility] - 11/26/2015 7:41 PM CDT HIV-1 p24 and HIV-1/HIV-2 Ab not detected Alba Castellanos MD SEND OUTS [facility] [address] [place] [address], [place] * LIPID PANEL W REFLEX MEASURED LDL (04/19/2014 1:06 PM CDT) CHOLESTEROL,TOTAL 184 100 - 199 mg/dL 04/19/2014 1:32 PM CDT [facility] TRIGLYCERIDES 89 <150 mg/dL 04/19/2014 1:32 PM CDT [facility] HDL CHOLESTEROL 75 >40 mg/dL 4 1:32 PM CDT [facility] NON-HDL CHOLESTEROL 109 <145 mg/dl 04/19/2014 1:32 PM CDT [facility] CHOL/HDL RATIO 2.45 <4.50 04/19/2014 1:32 PM CDT [facility] LDL CHOLESTEROL 91 <=130 mg/dL 04/19/2014 1:32 PM CDT [facility] PATIENT STATUS FASTING 04/19/2014 1:32 PM CDT [facility] Blood specimen (specimen) BLOOD SPECIMEN / Unknown Venipuncture / Unknown 04/19/2014 1:06 PM CDT 04/19/2014 1:07 PM CDT Ashley Ro MD CHEMISTRY [facility] from Last 3 Months or Most Recently Relevant to Health Maintenance Care Teams Medical Biller Coder Relationship Specialty Start Date End Date Yu Ferguson CNM [address] [place] [address] PCP - General 03/24/16
--- OUTSIDE RECORDS SUMMARY | 2024-07-31 12:12 | XMS_ITS | Data Portability ---
Author Organization [facility], [employer] Address [address] [place] [address] Assessment Encounter Date Assessment Date Assessment LastModified [...] we use for our informed consent process. [facility] schedule for routine care discussed. Our [...] meets the risk criteria for care at [facility] and is anticipated to have a low-risk //p ostpartum time. Not available 10/03/2019 16:03:04 Reason for Referral None Reported. Results Created Date Observation Date Name Description Value Unit Range Abnormal Flag Note LastModifiedBy Organization Detail LastModifiedTime 10/13/19 20 10/12/2019 US, obste tric, 1st trime ster No observ ation record ed. [facility] [address] [place], [address], 12/19/2019 20:43:31 Result Notes None recorded. Problems Name Problem SNOMED Code Status Onset Date Resolution Date Notes Provider Name and Address Organization Details Recorded Time [id number] Completed 020 12/19/2019 Yu Ferguson, CPM, LM [address] [place], [address], [place] - [facility] 0 20:45:10 Problem Notes None recorded. Procedures Surgical History None recorded. Imaging Results Imaging Date Name Status LastModified by Organiz ation Details LastModified Time 10/12/2019 US, obstetric, 1st trimester completed [facility] [address], [place], [address], 12/19/2019 20:43:31 Procedure Notes None recorded. Medical [...] Updated DateTime 0 172.72 cm 9.1 kg/m2 12865.5 422 g 12 /min 80 /min 101 mm[Hg] 60 mm[Hg] ERASTO SCHRADER, CPM, LM [address] [place], [address], [facility] 0 14:38:42 Social History Question Answer Notes LastModified by Organizat ion Details LastModified Time Tobacco Smoking Status Never Smoker ERASTO SCHRADER, [facility], LM [address] 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 1 Information not available 10/03/2019 Do You Or Have You Ever Used Smokeless Tobacco? [id number] Information not available 10/03/2019 How Much Tobacco Do You Smoke? No Information not available 10/03/2019 Smoking Pre- No Information not available 10/03/2019 Sex: Unknown Functional Status Question Answer Note LastModified by Organization D etails LastModified Time What is your exercise level? Moderate Information not available 10/03/2019 Mental Status None recorded. Family History Relationship Description Onset Age of this Age Resolved Age Notes LastModified by Organization Details LastModified Time Father No current problems or disability Not available 10/03 14:54:30 Mother No current problems or disability Not available 10/03 14:54:30 Medical History Condition Response Allergies (Food, seasonal, environmental ) N Other N Blood Transfusion N Drug/Latex Allergies/Reactions N Breast Cancer N Lung Disease N Dermatologic Disorders N Defects or Inherited Disease N Breast Problem N Gestational Diabetes N Hematologic disorders N Anesthesia Complications N History of STI N Deep Vein Thrombosis N Polycystic ovary syndrome N Anxiety Disorder N Autoimmune disease N Arthritis N Polyps N Infertility N Acid Reflux (GERD) N History of abnormal pap N Cancer N Stroke N Varicosities N Neurologic/Epilepsy N Endometriosis N High Cholesterol N Fibromyalgia N Headaches N Kidney Disease N Heart Problems N Thyroid Problems N Kidney or Bladder Problems N GI Problems N Acne N Eating Disorder N Anemia N Art (IVF or FET) N Psychiatric Illness N Diabetes N Ovarian Cancer N Pulmonary (TB, Asthma) N Hepatitis/Liver Disease N Eczema N Abuse/Domestic Violence N Trauma/Violence N Depression/ depression N Heart Disease N Pre-Eclampsia N Hypertension N Osteoporosis N Thrombophilias N Gynecological History Statement/Question Response Date of [...] Encounter Start Date Encounter Closed Date Diagnosis/Indication Diagnosis SNOMED-CT Code Diagnosis ICD10 Code 5932 ERASTO SCHRADER CPM, LM Main Office [address] [place] [address] 10/03/2019 14:30:52 10/03/2019 16:05:29 Health Concerns Section Related Observation LastModified by Organization Detai ls LastModified Time None Recorded Concern Status LastModified by Organization Details LastModified Time None Recorded Advance Directives Directive None Recorded Payers None recorded. Notes Date Note Type Note Provider Name and Address Organization Details Recorded Time 10/03/2019 text/html Patient presents for initial OB visit and confirmation visit. Last menstrual period was {{08/05/2019# date} }. Home test was positive. She is a G {{4#}} P {{1#}} Patient is transferring into our care for this from another provider. Her AMARILYS is {{05/11/2020# date} } based on {{LMP* Ultrasound Previous provider}} ERASTO SCHRADER CPM, [facility] [address] [place], [address], [facility] 10/03/2019 16:05:19 OBGyn Episode Ob Episode Information Episode Created Date Number of Fetuses Patient Bloodtype Patient rh Status Prepregnancy Weight lbs Domestic Partner Domestic Partner Phone Father Name Tobacco Grader Status 10/03/19 20 1 [address] CLOSED [...] Latest Days Gestation 0 05/11/20 20 0 Pre- Flowsheet Flowsheet Date 10/03/2019 Lim Score Blood [...] Estim ated Date of Delivery true Thalassemia (Kosovan, Urdu, Mediterranean, Or Background): MCV < 80 false Neural Tube Defect (Meningomyelocele, Spina Bifi da, Or Anencephaly) false Congenital Heart Defect false Down Syndrome false Evan-Sachs (eg, Quaker, Cajun, Urdu-Vincentian) f alse Rosa Disease false Sickle Cell [...]
--- NOTE | 2024-07-31 12:25 | W.ANESCHARGE ---
Anesthesia Charges Start Date/Time Anesthesia Start Date: 07/31/24 Anesthesia Start Time: 12:30 Stop Date/Time Anesthesia Stop Date: 07/31/24 Anesthesia Stop Time: 13:10
--- NOTE | 2024-07-31 13:13 | W.ANESCHARGE ---
Anesthesia Charges Start Date/Time Anesthesia Start Date: 07/31/24 Anesthesia Start Time: 12:30 Stop Date/Time Anesthesia Stop Date: 07/31/24 Anesthesia Stop Time: 13:10
== END 2024-07-31 12:10 | disposition home or self-care (01) ==
PROVIDERS: PCP Family Medicine; Visit Provider Surgery
DX: Z12.11 Encounter for screening for malignant neoplasm of colon (principal); D12.3 Benign neoplasm of transverse colon
CPT/HCPCS: 00811; 45381; 45385; 88305; J2704

== ENCOUNTER 2024-10-10 11:17 | Outpatient (CLI) | payer OTHER, SELFPAY | END 2024-10-10 11:18 | disposition home or self-care (01) | LOC: MAMMO 11:17 | PROVIDERS: PCP Family Medicine; Visit Provider Family Medicine | DX: Z12.31 Encounter for screening mammogram for malignant neoplasm of breast (principal); R92.333 Mammographic heterogeneous density, bilateral breasts | CPT/HCPCS: 77063; 77067 ==

== ENCOUNTER 2025-02-16 09:36 | Outpatient (CLI) | payer OTHER, SELFPAY ==
--- OUTSIDE RECORDS SUMMARY | 2025-02-16 09:54 | XMS_ITS | Clinical Summary ---
Author Organization [employer] [facility] Address [address] [place] [address] Care Team Providers Care Employee Relation Manager Name Role Phone Yu Ferguson JEFFREY Primary Care Provider [phone] Allergies No known active allergies Medications cyclobenzaprine 10 mg tabletIndications: Degeneration of intervertebral disc of lumbar region with discogenic back pain 1 tab by mount up at bedtime as needed for muscle spasm. May make you drowsy/ less alert. 30 Tablet 12/06/19 25 Active meloxicam 7.5 mg tabletIndications: Lumbar disc herniation 1 tab (7.5 mg) or 2 (15mg) 1 time a day with food. Do not take with other NSAID medications (Ibuprofen or Aleve) 60 Tablet 2 02/03/20 25 Active traMADoL 50 mg tabletIndications: Lumbar disc herniation Take 1 Tablet (50 mg) by mouth every 8 hours if needed for Pain. For chronic pain. 25 Tablet 02/03/20 25 Active Active Problems Problem Noted Date Diagnosed Date [...] transfer care third trimester to deliver with law professor in [place]. Pelvic pain during 10/25/2015 Fibroid 05/09/2014 Overview (05/09/2014): 04/2014: 5mm, submucosal Resolved Problems Problem Noted Date Diagnosed Date Resolved Date Heavy periods 04/20/2014 10/25/2015 BV (bacterial vaginosis) 04/20/2014 Encounters Date Type Department Care Team Description 02/13/2025 Telephone [facility] [address] [place] [address] Abdiel Washington MD Medication Management (QUESTIONS) 02/02/2025 9:55 AM CDT Office Visit [facility] [address] [place] [address] Abdiel Washington MD Musculoskeletal Problem (Follow up LBP and discuss Pain Management options) 02/02/2025 Travel 02/01/2025 Telephone [facility] [address] [place] [address] Abdiel Washington MD Error-please disregard 01/31/2025 Telephone [facility] [address] [place] [address] Abdiel Washington MD Need Meds (Pain medication for low back pain ) 01/10/2025 Transcribe Orders [facility] [address] [place] [address] Jonny Jang MD 01/06/2025 11:45 AM CDT Ancillary Procedure [facility] [address] [facility] [address] [place] [address] 01/05/2025 Travel 12/27/2024 Telephone [facility] [address] [place] [address] Abdiel Washington MD MRI (LOWER SPINE ) 12/06/2024 Telephone [facility] [address] [place] [address] Abdiel Washington MD Medication Management (Morphine ) 12/05/2024 3:30 PM CDT Office Visit [facility] [address] [place] [address] Abdiel Washington MD Musculoskeletal Problem (Follow-up Low Back Pain ~ Pain Management ) 12/04/2024 Travel from Last 3 Months Immunizations Immunization Administration Dates Next Due Tdap 04/19/2014 Family [...] alcohol) social Social Connections Answer Date Recorded Do you often feel lonely or isolated from those around you? 0 02/02/2025 Financial Resource Strain Answer Date R ecorded Difficulty of Paying Living Expenses 3 02/02/2025 Difficulty of Paying Living Expenses Not on file 02/02/2025 Food Insecurity Answer Date Recorded Do you worry your food will run out before you are able to buy more? 1 02/02/2025 Transportation Needs Answer Date Record ed Does lack of transportation keep you from medica l appointments? 1 02/02/2025 Does lack of transportation keep you from work, meetings or getting things that you need? 1 02/02/2025 Housing Stability Answer Date Recorded What is your housing situation today? 1 02/02/2025 Utilities Answer Date Recorded Do you have trouble paying f or utilities (for example, heat, electricity, water, phone)? 1 02/02/2025 Comments No Sex and Gender Information Value Date Recorded Sex Assigned at Not on file Legal Sex Female 6:24 AM ELECTRICIAN UNDERGROUND Gender Identity Not on file Sexual Orientation Not on file Obstetrics History Para Term AB IAB SAB Ectopic Multiple Livin g Live Births 2 1 1 Date Outcome GA Total Labor Labor/2nd/3rd Weight Sex Type Anes PTL Cande A1 A5 Name Clin IAB Last Filed Vital Signs Vital Sign Reading Time Taken Comments Blood Pressure 127/80 02/02/2025 9:59 AM CDT Pulse 86 02/02/2025 9:59 AM CDT Temperature 36.9 C (98.4 F) 12/04/2020 1:06 PM CDT Respiratory Rate 16 03/03/2016 3:31 PM CDT Oxygen Saturation 100% 02/02/2025 9:59 AM CDT Inhaled Oxygen Concentration - - Weight 67.7 kg (149 lb 4.8 oz) 02/02/2025 9:59 A M CDT Height 179.6 cm (5' 10.71) 12/05/2024 3:32 PM C DT Body Mass Index 20.99 12/05/2024 3:32 PM CDT Plan of Treatment Upcoming Encounters Date Type Department Care Team (Late st Contact Info) Description 02/16/2025 10:00 AM CDT Office Visit [facility] at [facility] [address] [place] [address] Jonny Jang MD [address] [place] [address] Arrived Health Maintenance Due Date Last Done Comments Hepatitis B series for 19+ (1 of 3 - 19+ 3-dose series) 1997 Depression screening for age 12+ 11/25/2016 11/26/2015 Pap test for age 21-65 08/05/2019 6, 08/05/2016, 04/19/2014 Colonoscopy through age 75 2023 Lipids for age 45-75 2023 04/19/2014 Mammogram for age 45-75 2023 Tetanus booster 04/19/2024 04/19/2014 Influenza Vaccine (Season Ended) 2025 BMI (ht and wt on same day) for age 18+ 12/05/2025 12/05/2024, 11/05/2017, 10/15/2017, Additional history exists Tdap Completed 04/19/2014 HIV for age 15-65 Completed 11/26/2015 Hepatitis C screening for age 18-79 Completed 03/24/2016 COVID-19 vaccine series Completed 06/01/20 24, 05/25/2023, 07/16/2022, Additional history exists Pneumococcal series for age 6-49 Aged Out No longer eligible based on patient's age to complete this topic Procedures Procedure Name Priority Date/Time Associated Diagnosis Comments AMB EPIDURAL STEROID INJECTION Routine 02/16/2025 7:58 AM CDT Spinal stenosis, lumbar region, with neurogenic claudication MR SPINE LUMBAR WO STAT 01/06/2025 12 :14 PM CDT Degeneration of intervertebral disc of lumbar region with discogenic back pain PLAY THERAPIST THIN PREP PAP DIAGNOSTIC IMAGED Routine 08/05/2016 3:00 PM ELECTRICIAN UNDERGROUND Encounter for routine follow-up ANTI HCV Today 03/24/2016 3:58 PM CDT Normal , second trimester (HC) ANTI HIV 1/2 Routine 11/26/2015 2:59 PM CDT Encounter for supervision of other normal (HC) LIPID PANEL W REFLEX MEASURED LDL Routine 04/19/2014 1:06 PM CDT Lipid screening from Last 3 Months or Most Recently Relevant to Health Maintenance Results * MR SPINE LUMBAR WO (01/06/2025 12:14 PM CDT) Anatomical Region Laterality Modality Spine, LUMBAR SPINE Magnetic Res onance 01/06/2025 12:3 2 PM CDT Narrative 01/06/2025 12:32 PM CDT For Patients: As a result of the Cures Act, medical imaging exams and procedure reports are released immediately into your electronic medical record. You may view this report before your referring provider. If you have questions, please contact your health care provider. Indication: 20 years of chronic low back pain, pain worsening recently with some left lateral leg pain and right buttock pain. Technique: MRI lumbar spine without contrast. Noncontrast sagittal and axial T1, T2, and sagittal STIR sequences are provided. Comparison: MRI 05/14/2022 Findings: Normal lumbar spine alignment. Severe disc height loss at L5-S1 with anterior osteophytic spurring. Disc desiccation at L4-5. The conus medullaris is normal in signal and located at L1. T12-L1: No significant spinal canal stenosis or neural foramen narrowing. Normal disc and facet joints. L1-2: No significant spinal canal stenosis or neural foramen narrowing. Normal disc and facet joints. L2-3: No significant spinal canal stenosis or neural foramen narrowing. Normal disc and facet joints. L3-4: No significant spinal canal stenosis or neural foramen narrowing. Normal disc and facet joints. L4-5: Disc desiccation. Small left central disc protrusion and bilateral facet arthrosis. Moderate left and mild right subarticular recess narrowing with likely impingement of the traversing left L5 nerve roots. Mild neural foraminal narrowing. L5-S1: Severe interspace narrowing. Diffuse disc bulge and endplate osteophytic ridging with left foraminal disc protrusion. Moderate left and mild right facet joint arthropathy. Moderate left and mild right subarticular recess narrowing with likely impingement of the descending left S1 nerve roots. Moderate left and mild right neural foraminal narrowing due to combination of endplate osteophytic ridging and facet joint arthropathy. Impression : 1. No acute osseous or ligamentous abnormality. No significant changes compared to the 05/14/2022 MRI study. 2. At L4-5, small left central disc herniation and facet arthropathy results in moderate left and mild right subarticular recess narrowing. Likely impingement of the traversing left L5 nerve roots. Mild neural foramen narrowing bilaterally. 3. At L5-S1, there is similar moderate left and mild right subarticular recess narrowing and likely impingement of the descending left S1 nerve roots. Moderate left and mild right neural foramen narrowing. Dictated by Doc Murphy MD @ 01/06/2025 12:32:30 PM (Electronically Signed) Procedure Note Doc Murphy MD - 01/06/2025 For Patients: As a result of the Century Cures Act, medical imagingexams and procedure reports are released immediately into your electronicmedical record. You may view this report before your referring provider.If you have questions, please contact your health care provider. Indication: 20 years of chronic low back pain, pain worsening recently with some leftlateral leg pain and right buttock pain. Technique: MRI lumbar spine without contrast. Noncontrast sagittal and axial T1, T2,and sagittal STIR sequences are provided. Comparison: MRI 05/14/2022 Findings: Normal lumbar spine alignment. Severe disc height loss at L5-S1 withanterior osteophytic spurring. Disc desiccation at L4-5. The conusmedullaris is normal in signal and located at L1. T12-L1: No significant spinal canal stenosis or neural foramen narrowing.Normal disc and facet joints. L1-2: No significant spinal canal stenosis or neural foramen narrowing.Normal disc and facet joints. L2-3: No significant spinal canal stenosis or neural foramen narrowing.Normal disc and facet joints. L3-4: No significant spinal canal stenosis or neural foramen narrowing.Normal disc and facet joints. L4-5: Disc desiccation. Small left central disc protrusion and bilateralfacet arthrosis. Moderate left and mild right subarticular recessnarrowing with likely impingement of the traversing left L5 nerve roots.Mild neural foraminal narrowing. L5-S1: Severe interspace narrowing. Diffuse disc bulge and endplateosteophytic ridging with left foraminal disc protrusion. Moderate left andmild right facet joint arthropathy. Moderate left and mild rightsubarticular recess narrowing with likely impingement of the descendingleft S1 nerve roots. Moderate left and mild right neural foraminalnarrowing due to combination of endplate osteophytic ridging and facetjoint arthropathy. Impression : 1. No acute osseous or ligamentous abnormality. No significant changescompared to the 05/14/2022 MRI study. 2. At L4-5, small left central disc herniation and facet arthropathyresults in moderate left and mild right subarticular recess narrowing.Likely impingement of the traversing left L5 nerve roots. Mild neuralforamen narrowing bilaterally. 3. At L5-S1, there is similar moderate left and mild right subarticularrecess narrowing and likely impingement of the descending left S1 nerveroots. Moderate left and mild right neural foramen narrowing. Dictated by Doc Murphy MD @ 01/06/2025 12:32:30 PM (Electronically Signed) Abdiel Washington MD MR Final Res ult * PLAY THERAPIST THIN PREP PAP DIAGNOSTIC IMAGED (08/05/2016 3:00 PM ELECTRICIAN UNDERGROUND) Case Report Gynecologic Cytology Report Case: [id number] Authorizing Provider: Yu Ferguson CNM Collected: 08/05/2016 1500 First Screen: Liliana Romero Received: 08/07/2016 1248 Rescreen: Justen Contreras Specimen: PLAY THERAPIST ThinPrep Vial Diagnostic, Cervical/Vaginal 08/14/2016 12:08 PM ELECTRICIAN UNDERGROUND [facility] [employer] [facility] INTERPRETATION/ RESULT NEGATIVE FOR INTRAEPITHELIAL LESION OR MALIGNANCY (NIL) (none) 08/14/2016 12:08 PM ELECTRICIAN UNDERGROUND [facility] [employer] [facility] at 1208 ELECTRICIAN UNDERGROUND SPECIMEN ADEQUACY Satisfactory for evaluation Endocervical component present 08/14/2016 12:08 PM ELECTRICIAN UNDERGROUND [facility] HPV REQUEST HPV and PAP 08/14/2016 12:08 PM ELECTRICIAN UNDERGROUND [facility] [employer] [facility] Date of LMP 09/09/2015 08/14/2016 12:08 PM ELECTRICIAN UNDERGROUND [facility] Last Pap Date 01/29/2014 08/14/2016 12:08 PM ELECTRICIAN UNDERGROUND [facility] Last Pap Result NIL 6 12:08 PM ELECTRICIAN UNDERGROUND [facility] [employer] [facility] Menstrual Status 08/14/2016 12:08 PM ELECTRICIAN UNDERGROUND [facility] Automated Review Successful 08/14/2016 12:08 PM ELECTRICIAN UNDERGROUND [facility] [employer] [facility] Comment:Specimen processed s uccessfully by automated outboard motorboat rigger device, ThinPrep Imaging System, [employer] ANCILLARY TESTING PLAY THERAPIST HPV Ordered, Please see separate report 08/14/2016 12:08 PM ELECTRICIAN UNDERGROUND [facility] [employer] [facility] Note The pap test is [...] pre-malignant and malignant lesions. 08/14/2016 12:08 PM ELECTRICIAN UNDERGROUND [facility] [employer] [facility] Other (Cervical/Vagina l) 08/05/2016 3:00 PM ELECTRICIAN UNDERGROUND 08/07/2016 12:48 PM ELECTRICIAN UNDERGROUND Yu Ferguson CNM PATHOLOGY/CYTOLOGY Final Resul t [facility] [address] [place] [address], [place] * ANTI HCV (03/24/2016 3:58 PM CDT) HEPATITIS C ANTIBODY Non-Reacti ve Non-Reacti ve 03/24/2016 5:39 PM CDT [facility] Blood BLOOD SPECIMEN / Unknown Venipuncture / Unknown 03/24/2016 3:58 PM CDT 03/24/2016 4:00 PM CDT [facility] - 03/24/2016 5:39 PM CDT Antibodies to HCV not detected; does not exclude the possibility of exposure to HCV. Yu Ferguson CNM [place] [address], * ANTI HIV 1/2 (11/26/2015 2:59 PM CDT) Pathologist [facility] HIV-1/HIV-2 ANTIBODY Non-Reacti ve Non-Reacti ve 11/26/2015 7:41 PM CDT [facility] Blood specimen (specimen) BLOOD SPECIMEN / Unknown Venipuncture / Unknown 11/26/2015 2:59 PM CDT 11/26/2015 2:59 PM [facility] 11/26/2015 7:41 PM CDT HIV-1 p24 and HIV-1/HIV-2 Ab not detected Alba Castellanos MD SEND OUTS [facility] [address] [place] [address], [place] * LIPID PANEL W REFLEX MEASURED LDL (04/19/2014 1:06 PM CDT) Pathologist [facility] CHOLESTEROL,TOTAL 184 100 - 199 mg/dL 04/19/2014 [...] 1:06 PM CDT 04/19/2014 1:07 PM CDT us Ashley Ro MD CHEMISTRY Final R esult [facility] [address] [place] [address], from Last 3 Months or Most Recently Relevant to Health Maintenance Insurance [facility] Care Teams Employee Relation Manager Relationship Specialty Start Date End Date Yu Ferguson CNM [address] [place] [address] PCP - General 03/24/16
--- OUTSIDE RECORDS SUMMARY | 2025-02-17 00:18 | XMS_ITS | Clinical Summary ---
Author Organization [employer] [facility] Address [address] [place] [address] Care Team Providers Care Director Of Graduate Medical Education Name Role Phone Yu Ferguson JEFFREY Primary Care Provider Allergies No known active allergies Medications cyclobenzaprine [...] AMA: declines testing. Level US schedule with M at 20 weeks Planning to transfer care third trimester to deliver with editor magazine in [place]. Pelvic pain during 10/25/2015 Fibroid 05/09/2014 Overview (05/09/2014): 04/2014: 5mm, submucosal Resolved Problems Problem Noted Date Diagnosed Date Resolved Date Heavy periods 04/20/2014 10/25/2015 BV (bacterial vaginosis) 04/20/2014 Encounters Date Type Department Care Team Description 02/16/2025 10:00 AM CDT Office Visit [facility] [address] [place] [address] Jonny Jang MD Procedure (Left L5-S1 TFESI) 02/13/2025 Telephone [facility] [address] [place] [address] Abdiel Washington MD Medication Management (QUESTIONS) 02/02/2025 9:55 AM CDT Office Visit [facility] [address] [place] [address] Abdiel Washington MD Musculoskeletal Problem (Follow up LBP and discuss Pain Management options) 02/02/2025 Travel 02/01/2025 Telephone [facility] [address] [place] [address] Abdiel Washington MD Error-please disregard 01/31/2025 Telephone [facility] [address] [place] [address] Abdiel Washington MD Need Meds (Pain medication for low back pain ) 01/10/2025 Transcribe Orders [facility] [address] [place] [address] Jonny Jang MD 01/06/2025 11:45 AM CDT Ancillary Procedure [facility] [address] [facility] [address] [place] [address] 01/05/2025 Travel 12/27/2024 Telephone [facility] [address] [place] [address] Abdiel Washington MD MRI (LOWER SPINE ) 12/06/2024 Telephone [facility] [address] [place] [address] Abdiel Washington MD Medication Management (Morphine ) 12/05/2024 3:30 PM CDT Office Visit [facility] [address] [place] [address] Abdiel Washington MD Musculoskeletal Problem (Follow-up Low [...] on file Legal 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 Gender Identity Not on file Sexual Orientation [...] 12/05/2024 3:32 PM CDT Plan of Treatment Health Maintenance Due Date [...] of lumbar region with discogenic back pain MANAGER SHIFT THIN PREP PAP DIAGNOSTIC IMAGED Routine 08/05/2016 3:00 PM RETAIL CHAIN STORE AREA SUPERVISOR Encounter for routine follow-up ANTI HCV Today [...] For Patients: As a result of the 21st Century Cures Act, medical imagingexams and procedure [...] MD @ 01/06/2025 12:32:30 PM (Electronically Signed) us Abdiel Washington MD MR Final Res ult * MANAGER SHIFT THIN PREP PAP DIAGNOSTIC IMAGED (08/05/2016 3:00 PM RETAIL CHAIN STORE AREA SUPERVISOR) Case Report Gynecologic Cytology Report Case: [id number] Authorizing Provider: Yu Ferguson CNM Collected: 08/05/2016 1500 First Screen: Liliana Romero Received: 08/07/2016 1248 Rescreen: Justen Contreras Specimen: MANAGER SHIFT ThinPrep Vial Diagnostic, Cervical/Vaginal 08/14/2016 12:08 PM [facility] INTERPRETATION/ RESULT NEGATIVE FOR INTRAEPITHELIAL LESION OR MALIGNANCY (NIL) (none) 08/14/2016 12:08 PM [facility] at 1208 RETAIL CHAIN STORE AREA SUPERVISOR SPECIMEN ADEQUACY Satisfactory for evaluation Endocervical component present 08/14/2016 12:08 PM [facility] HPV REQUEST HPV and PAP 08/14/2016 12:08 PM [facility] Date of LMP 09/09/2015 08/14/2016 12:08 PM [facility] Last Pap Date 01/29/2014 08/14/2016 12:08 PM [facility] Last Pap Result NIL 6 12:08 PM [facility] Menstrual Status 08/14/2016 12:08 PM [facility] Automated Review Successful 08/14/2016 12:08 PM [facility] Comment:Specimen processed s uccessfully by automated clinical nurse occupational medicine device, ThinPrep Imaging System, [employer] ANCILLARY TESTING MANAGER SHIFT HPV Ordered, Please see separate report 08/14/2016 12:08 PM [facility] Note The pap test is a screening technique, not a diagnostic procedure. It is used primarily to screen for squamous cancers and precursor lesions. Published studies have shown that it is subject to both false negative and false positive results. The pap test should not be used as the sole means to diagnose or exclude pre-malignant and malignant lesions. 08/14/2016 12:08 PM [facility] Other (Cervical/Vagina l) 08/05/2016 3:00 PM RETAIL CHAIN STORE AREA SUPERVISOR 08/07/2016 12:48 PM RETAIL CHAIN STORE AREA SUPERVISOR us Yu Ferguson CNM PATHOLOGY/CYTOLOGY Final [facility]ul t [facility] [address] [place] [address], [place] * ANTI HCV (03/24/2016 3:58 PM CDT) HEPATITIS C ANTIBODY Non-Reacti ve Non-Reacti ve 03/24/2016 5:39 PM CDT [facility] Blood BLOOD SPECIMEN / Unknown Venipuncture / Unknown 03/24/2016 3:58 PM CDT 03/24/2016 4:00 PM CDT [facility] - 03/24/2016 5:39 PM CDT Antibodies to HCV not detected; does not exclude the possibility of exposure to HCV. Yu Ferguson CNM [place] [address], * ANTI HIV 1/2 (11/26/2015 2:59 PM CDT) Pathologist [facility] HIV-1/HIV-2 ANTIBODY Non-Reacti ve Non-Reacti ve 11/26/2015 7:41 PM CDT [facility] Blood specimen (specimen) BLOOD SPECIMEN / Unknown Venipuncture / Unknown 11/26/2015 2:59 PM CDT 11/26/2015 2:59 PM [facility] 11/26/2015 7:41 PM CDT HIV-1 p24 and HIV-1/HIV-2 Ab not detected Alba Castellanos MD SEND OUTS Final [facility]u lt [facility] [address] [place] [address], [place] * LIPID PANEL W REFLEX MEASURED LDL (04/19/2014 1:06 PM CDT) Pathologist [facility] CHOLESTEROL,TOTAL 184 100 - 199 mg/dL 04/19/2014 1:32 PM CDT [facility] TRIGLYCERIDES 89 <150 mg/dL 04/19/2014 1:32 PM CDT [facility] HDL CHOLESTEROL 75 >40 mg/dL 4 1:32 PM CDT [facility] NON-HDL CHOLESTEROL 109 <145 mg/dl 04/19/2014 1:32 PM CDT [facility] CHOL/HDL RATIO 2.45 <4.50 04/19/2014 1:32 PM CDT [facility] LDL CHOLESTEROL 91 <=130 mg/dL 04/19/2014 1:32 PM CDT [facility] PATIENT STATUS FASTING 04/19/2014 1:32 PM CDT [facility] Blood specimen (specimen) BLOOD SPECIMEN / Unknown Venipuncture / Unknown 04/19/2014 1:06 PM CDT 04/19/2014 1:07 PM CDT us Ashley Ro MD CHEMISTRY Final R esult [facility] [address] [place] [address], from Last 3 Months or Most Recently Relevant to Health Maintenance Insurance [facility] Care Teams Director Of Graduate Medical Education Relationship Specialty Start Date End Date Yu Ferguson CNM [address] [place] [id number] PCP - General 03/24/16
== END 2025-02-16 09:37 | disposition home or self-care (01) ==
LOC: INJ CL 09:37
PROVIDERS: PCP Family Medicine; Visit Provider Family Medicine
DX: M54.16 Radiculopathy, lumbar region (principal); M48.062 Spinal stenosis, lumbar region with neurogenic claudication
CPT/HCPCS: 64483; J1100; Q9966